=== PATIENT | male | born 1980 | race Caucasian/White ===

== ENCOUNTER 2018-02-19 01:37 | Emergency (ER) | payer OTHER ==
[2018-02-19] MEDS: dexameTHASONE 20 MG/5 ML VIAL (J1100) IM (03:08)
[2018-02-19] MEDS: HYDROmorphone HCL 1 MG/ML SYRINGE (J1170) IM (03:08)
== END 2018-02-19 03:13 | disposition home or self-care (01) ==
LOC: M ED 01:37
DX: M54.31 Sciatica, right side (principal); G89.29 Other chronic pain; Z79.899 Other long term (current) drug therapy; Z79.82 Long term (current) use of aspirin
CPT/HCPCS: J1170